=== PATIENT | male | born 1975 | race Two or more races ===

== ENCOUNTER 2018-11-22 13:31 | Emergency (ER) | payer SELFPAY ==
[~2018-11-22] VITALS: Ht 172.7 cm; Wt 77.1 kg
--- NOTE | 2018-11-22 15:56 | Emergency Room Report ---
History of Present Illness General Chief Complaint: Substance Abuse Source: EMS Present Illness HPI This patient left prior to evaluation by medical provider. Allergies: Coded Allergies: UNABLE TO ASSESS (Unverified , 11/22/18) Nursing Documentation-[facility] Past Medical History: Deferred Medical Decision Making PA Attestation Dr. Granado is my supervising Physician whom patient management has been discussed with. ER Course This patient left prior to evaluation by medical provider. Disposition: LEFT W/OUT BEING SEEN Condition: Unknown Referrals: NOT CHOSEN [facility]/,REFERRING (PCP) Meghann Nunes Nov 22, 2018 15:56
== END 2018-11-22 13:34 | disposition left against medical advice (07) ==
LOC: EDBD 13:31 → EMR 13:34
DX: F19.10 Other psychoactive substance abuse, uncomplicated (principal)
CPT/HCPCS: 99282

== ENCOUNTER 2019-05-12 19:39 | Emergency (ER) | payer OTHER ==
[~2019-05-12] VITALS: Ht 167.6 cm; Wt 78.5 kg
--- NOTE | 2019-05-12 20:05 | NUR ---
ED Nurse Note: pt ambulated to ED from home c/o an abscess on buttocks and states having hemorhoid pain, denies bleeding now. VSS, denies fever or other symptoms
[2019-05-12 20:21] VITALS: BP 162/109
[2019-05-12] MEDS ORDERED: BACTRIM DS TAB1 EAC1 ORAL (20:27)
[2019-05-12] MEDS ORDERED: CEPHALEXIN500 MG ORAL (20:27)
[2019-05-12] MEDS ORDERED: Lidocaine 1% MPF 10mg/ml 5ml INJ ONE (20:30)
[2019-05-12] MEDS ORDERED: Bactrim-DS 1 tab ORAL ONE (20:30)
[2019-05-12 20:35] VITALS: BP 162/109
--- NOTE | 2019-05-12 20:35 | NUR ---
ER DISCHARGE NOTE: Patient is cleared to be discharged per ERMD, pt is aox4, on room air, with stable vital signs. pt was given dc and prescription instructions, pt was able to verbalize understanding, pt id band removed. pt is able to ambulate with steady gait. pt took all belongings.
--- NOTE | 2019-05-12 21:36 | Emergency Room Report ---
History of Present Illness General Chief Complaint: Skin Rash/Abscess Source: Patient Present Illness HPI Patient presents with reports of discomfort in the inner part of the upper thigh on the right side also feels an abnormality just above the rectal area Patient has history of HIV however his CD4 count and viral load are appropriate patient follows closely with his primary physician and HIV physician Also reports that there was some blood discharge from the region above the rectal area Denies any obvious trauma denies any chest pain or shortness of breath denies any abdominal pain denies any fevers denies any myalgia Allergies: Coded Allergies: No Known Allergies (Unverified , 05/12/19) Patient History Past Medical History: see triage record Reviewed Nursing Documentation: PMH: Agreed; PSxH: Agreed Nursing Documentation-PMH Past Medical History: No History, Except For Hx Hypertension: Yes History Of Psychiatric Problem: Yes - anxiety Review of Systems All Other Systems: negative except mentioned in HPI Physical Exam Vital Signs Date Time Temp Pulse Resp B/P (MAP) Pulse Ox O2 Delivery O2 Flow Rate FiO2 05/12/19 19:57 98.2 120 20 162/109 (126) 99 Room Air Sp02 EP Interpretation: reviewed, normal General Appearance: well appearing, no apparent distress Head: normocephalic, atraumatic Eyes: bilateral eye PERRL, bilateral eye EOMI ENT: hearing grossly normal, EOM grossly intact Neck: supple Respiratory: lungs clear, no respiratory distress, no retraction Cardiovascular #1: regular rate, rhythm Gastrointestinal: non tender, soft Rectal: other - Area of small folliculitis fullness mild erythema on the inner aspect of the proximal thigh on the right side, rectal exam is appropriate however about 1 cm above that there is evidence of a region of skin breakdown no fluctuance there does not appear to be any communication with the rectum in this area Musculoskeletal: normal inspection Neurologic: alert Psychiatric: normal inspection Skin: other - As above Lymphatic: no adenopathy Medical Decision Making Diagnostic Impression: Primary Impression: Abscess Additional Impression: skin tear ER Course Patient has evidence of folliculitis The area above the rectal area however is more concerning initial consideration for fissure was made however There is no obvious communication, Patient later on describes that he had a fullness and a ball type sensation in that region after taking a shower it appeared to come down however best when he had the discharge Possible ingrown hair with opening of the area as possible No obvious fluctuance is palpable patient does not show findings consistent with Charley gangrene or perirectal abscess Patient was treated with antibiotics here will do warm soakings throughout the next 2 to 3 days reports that his HIV physician is also doing research on rectal cancer And is following with her on Saturday Last Vital Signs Date Time Temp Pulse Resp B/P (MAP) Pulse Ox O2 Delivery O2 Flow Rate FiO2 05/12/19 20:35 98.2 76 20 162/109 99 Room Air Status: improved Disposition: HOME, SELF-CARE Condition: Improved Scripts Trimethoprim/Sulfamethoxazole 160/800* (BACTRIM DS TABLET*) 1 Each Tablet 1 TAB ORAL Q12H, #20 TAB 0 Refills Prov: Franc Granado DO 05/12/19 Cephalexin* (KEFLEX*) 500 Mg Capsule 500 MG ORAL EVERY 6 HOURS for 10 Days, CAP Prov: Franc Granado DO 05/12/19 Referrals: your PMD Patient Instructions: Skin Tear Care, [id number], Folliculitis Additional Instructions: Patient is provided with the discharge instructions notified to follow up with primary doctor in the next 2-3 days otherwise return to the er with any worsening symptoms. Please note that this report is being documented using Movie Mouth technology. This can lead to erroneous entry secondary to incorrect interpretation by the dictating instrument. Franc Granado DO May 12, 2019 21:36
== END 2019-05-12 20:35 | disposition home or self-care (01) ==
LOC: EMR 20:15
DX: L02.415 Cutaneous abscess of right lower limb (principal); T14.8XXA Other injury of unspecified body region, initial encounter; B20 Human immunodeficiency virus [HIV] disease; I10 Essential (primary) hypertension; X58.XXXA Exposure to other specified factors, initial encounter; Y93.9 Activity, unspecified; Y92.9 Unspecified place or not applicable
CPT/HCPCS: 96372; 96374; J0696; Z7502; 99284

== ENCOUNTER 2019-06-20 22:06 | Emergency (ER) | payer OTHER ==
[~2019-06-20] VITALS: Ht 167.6 cm; Wt 77.1 kg
[~2019-06-20 22:06] MED LIST: BACTRIM DS TAB1 EAC1 ORAL; CEPHALEXIN500 MG ORAL
[2019-06-20 22:22] VITALS: BP 140/100
--- NOTE | 2019-06-20 22:23 | NUR ---
ER Nurse Note: Pt walked in from home c/o LT eye pain and irriation since 06/18. Pt stated he "feels like there is something in eyes". LT eye redness. Denies blurry vision.Visual acuity done; LT eye 20/25, RT eye 202/0, both without glasses. Will continue to montior.
[2019-06-20] MEDS ORDERED: POLYTRIM OP SOL10 ML OPHTHALM (22:28)
--- NOTE | 2019-06-20 22:28 | Emergency Room Report ---
History of Present Illness General Chief Complaint: Eye Problems Source: Patient Present Illness [facility] This a 44-year-old male with history HIV. He presents with chief complaint of left eye irritation and discharge. Woke up with it. No running. He does not wear contacts. Discharge is yellowish to greenish in nature. He denies any other complaint. [place] itchy and foreign body-like in that eye. Allergies: Coded Allergies: No Known Allergies (Unverified , 05/12/19) COVID-19 Screening Contact w/high risk pt: No Recent Travel to affected area: No Experienced COVID-19 symptoms?: No Patient History Past Medical History: see triage record, old chart reviewed, HIV Past Surgical History: none Pertinent Family History: none Social History: Denies: smoking Immunizations: other Reviewed Nursing Documentation: PMH: Agreed; PSxH: Agreed Nursing Documentation-PMH Hx Hypertension: Yes Review of Systems Eye: Reports: blurred vision, discharge; Denies: eye pain ENT: Denies: ear pain, nose congestion, throat swelling Respiratory: Denies: cough, shortness of breath Cardiovascular: Denies: chest pain, palpitations Gastrointestinal: Denies: abdominal pain, diarrhea, nausea, vomiting Musculoskeletal: Denies: back pain, joint pain Skin: Denies: rash Neurological: Denies: headache, numbness Endocrine: Denies: increased thirst, increased urine Hematologic/Lymphatic: Denies: easy bruising All Other Systems: negative except mentioned in HPI Physical Exam Vital Signs Date Time Temp Pulse Resp B/P (MAP) Pulse Ox O2 Delivery O2 Flow Rate FiO2 06/20/19 22:14 98.1 104 18 140/100 (113) 97 Room Air Vitals unremarkable Sp02 EP Interpretation: reviewed, normal General Appearance: well appearing, no apparent distress, alert Head: normocephalic, atraumatic Eyes: left eye other - Conjunctiva injected. There is yellowish discharge.; bilateral eye PERRL, bilateral eye EOMI ENT: hearing grossly normal, normal pharynx Neck: full range of motion, supple, no meningismus Respiratory: chest non-tender, lungs clear, normal breath sounds Cardiovascular #1: regular rate, rhythm, no murmur Gastrointestinal: normal bowel sounds, non tender, no mass, no organomegaly, no bruit, non-distended Musculoskeletal: back normal, normal range of motion, gait/station normal Psychiatric: mood/affect normal Medical Decision Making Diagnostic Impression: Primary Impression: Acute bacterial conjunctivitis of left eye ER Course This patient presents with a conjunctivitis. Will go ahead and put on antibiotics. No evidence of foreign body or globe rupture. No evidence of systemic infection. Will discharge home. Last Vital Signs Date Time Temp Pulse Resp B/P (MAP) Pulse Ox O2 Delivery O2 Flow Rate FiO2 06/20/19 22:22 98.1 104 18 140/100 97 Room Air Status: unchanged Disposition: HOME, SELF-CARE Condition: Stable Scripts Polymyxin/Trimethoprim (Polytrim Eye Drops) 10 Ml Drops 2 DROP OPHTHALM THREE TIMES A DAY, #1 EA Instill in affected eye for 7 days Prov: Grupo Flores MD 06/20/19 Patient Instructions: Bacterial Conjunctivitis, [id number] Additional Instructions: Treat both eyes. Follow-up with your doctor in 7 days for recheck. If not better, you may need a referral to see an eye doctor. Return if symptoms worsen. Grupo Flores MD Jun 20, 2019 22:28
[2019-06-20 22:35] VITALS: BP 140/100
--- NOTE | 2019-06-20 22:35 | NUR ---
ED Nurse Note: Pt cleared by health care Provider for discharge. DC instructions/prescription was given and explained to pt and verbalized understanding of teachings. All medical deviecs such as ID band removed. Pt is AAO x4, ambulatory and left with all personal belongings.
== END 2019-06-20 22:35 | disposition home or self-care (01) ==
LOC: EMR 22:30
DX: H10.32 Unspecified acute conjunctivitis, left eye (principal); B20 Human immunodeficiency virus [HIV] disease; I10 Essential (primary) hypertension
CPT/HCPCS: 99282

== ENCOUNTER 2020-05-26 17:38 | Emergency (ER) | payer OTHER ==
[~2020-05-26] VITALS: Ht 167.6 cm; Wt 79.4 kg
[~2020-05-26 17:38] MED LIST changes: +POLYTRIM OP SOL10 ML OPHTHALM
[2020-05-26 17:44] VITALS: BP 127/82
--- NOTE | 2020-05-26 17:53 | NUR ---
pt arrives to ER with complaints of fever, pt states receiveing chemotherapy treatment yesterday for lymphoma. pt states pain and discomfort generalized.
[2020-05-26] MEDS ORDERED: Morphine Sulfate 4mg/ml Inj (IV USE ONLY) IVP ONE (18:00)
[2020-05-26] MEDS ORDERED: Ketorolac 30mg Inj IV ONE (18:00)
[2020-05-26 18:31] LABS: HEMATOCRIT 33.9 % (42.0-52.0); HEMOGLOBIN 11.3 G/DL (14.2-18.0); MEAN CORPUSCULAR VOLUME 90 FL (80-99); PLATELET COUNT 147 K/UL (150-450); RED BLOOD COUNT 3.77 M/UL (4.70-6.10); RED CELL DISTRIBUTION WIDTH 14.1 % (11.6-14.8)
[2020-05-26 18:35] LABS: WHITE BLOOD COUNT 0.8 K/UL (4.8-10.8)
--- NOTE | 2020-05-26 18:36 | NUR ---
pt states has completed 4 chemotherapy treatments, last treatment last week with 2 remaining
[2020-05-26 18:45] LABS: ANION GAP 12 mmol/L (5-15); BLOOD UREA NITROGEN 10 mg/dL (7-18); CALCIUM 8.7 MG/DL (8.5-10.1); CARBON DIOXIDE 25 MMOL/L (21-32); CHLORIDE 102 MMOL/L (98-107); POTASSIUM 3.5 MMOL/L (3.5-5.1); SODIUM 139 MMOL/L (136-145)
[2020-05-26] MEDS ORDERED: Vancomycin 1 GM in NS 275 ML IVPB ONE (18:45)
[2020-05-26] MEDS ORDERED: Piperacillin/Tazobactam 4.5 GM in NS 110 ML IVPB ONE (18:45)
[2020-05-26 18:50] LABS: ALANINE AMINOTRANSFERASE 22 U/L (12-78); ALBUMIN/GLOBULIN RATIO 0.9 (1.0-2.7); ALKALINE PHOSPHATASE 84 U/L (46-116); ASPARTATE AMINO TRANSFERASE 10 U/L (15-37); BILIRUBIN,TOTAL 0.4 MG/DL (0.2-1.0); PHOSPHORUS 1.2 MG/DL (2.5-4.9)
--- NOTE | 2020-05-26 18:58 | Emergency Room Report ---
History of Present Illness General Chief Complaint: General Complaint Source: Patient Present Illness HPI 45-year-old male with history of lymphoma on chemotherapy here with fever and joint pain. Patient says that he received his fourth treatment of chemotherapy 7 days ago and yesterday began to have a fever. Checked his temperature and it was 101 F. Has not taken any medication for symptoms. Says that he also developed right middle finger swelling and pain "similar to the gout that my dad had." Patient has no history of gout and has never had these symptoms before. Denies headache, vision change, neck pain, neck stiffness, chest pain, palpitation, cough, shortness of breath, back pain, abdominal pain, nausea, vomiting, diarrhea, dysuria. Allergies: Coded Allergies: No Known Allergies (Unverified , 05/12/19) COVID-19 Screening Contact w/high risk pt: No Recent Travel to affected area: No Experienced COVID-19 symptoms?: Yes COVID-19 Testing performed PEARL DIVER: No COVID-19 Screening: Negative COVID-19 COVID-19 Testing Source: nasal Nursing Documentation-[facility] Past Medical History: No History, Except For Hx Hypertension: Yes Review of Systems All Other Systems: negative except mentioned in HPI Physical Exam Vital Signs Date Time Temp Pulse Resp B/P (MAP) Pulse Ox O2 Delivery O2 Flow Rate FiO2 05/26/20 17:44 99.1 146 18 127/82 (97) 97 Room Air Sp02 EP Interpretation: reviewed, normal General Appearance: alert, non-toxic, other - Appears uncomfortable, diapho retic Head: normocephalic, atraumatic Eyes: bilateral eye normal inspection, bilateral eye PERRL ENT: hearing grossly normal, normal pharynx, no angioedema, normal voice Neck: full range of motion, supple/symm/no masses Respiratory: chest non-tender, lungs clear, normal breath sounds, speaking full sentences Cardiovascular #1: no edema, other - Tachycardic 140 bpm Cardiovascular #2: 2+ carotid (R), 2+ carotid (L), 2+ radial (R), 2+ radial (L), 2+ dorsalis pedis (R), 2+ dorsalis pedis (L) Gastrointestinal: normal bowel sounds, non tender, soft, non-distended, no guarding, no rebound Rectal: deferred Genitourinary: normal inspection, no CVA tenderness Musculoskeletal: back normal, normal range of motion, gait/station normal, non- tender, other - Right PICC line in place in the right upper extremity. No surrounding erythema or induration or drainage Neurologic: alert, motor strength/tone normal, oriented x3, sensory intact, responsive, speech normal Psychiatric: judgement/insight normal, memory normal, mood/affect normal, no suicidal/homicidal ideation Lymphatic: no adenopathy Medical Decision Making Diagnostic Impression: Primary Impression: Neutropenic fever ER Course Laboratory Tests Test 05/26/20 18:00 05/26/20 18:44 White Blood Count 0.8 K/UL (4.8-10.8) *L Red Blood Count 3.77 M/UL (4.70-6.10) L Hemoglobin 11.3 G/DL (14.2-18.0) L Hematocrit 33.9 % (42.0-52.0) L Mean Corpuscular Volume 90 FL (80-99) Mean Corpuscular Hemoglobin 30.0 PG (27.0-31.0) Mean Corpuscular Hemoglobin Concent 33.2 G/DL (32.0-36.0) Red Cell Distribution Width 14.1 % (11.6-14.8) Platelet Count 147 K/UL (150-450) L Mean Platelet Volume 9.2 FL (6.5-10.1) Neutrophils (%) (Auto) % (45.0-75.0) Lymphocytes (%) (Auto) % (20.0-45.0) Monocytes (%) (Auto) % (1.0-10.0) Eosinophils (%) (Auto) % (0.0-3.0) Basophils (%) (Auto) % (0.0-2.0) Neutrophils % (Manual) Pending Lymphocytes % (Manual) Pending Platelet Estimate Pending Platelet Morphology Pending Sodium Level 139 MMOL/L (136-145) Potassium Level 3.5 MMOL/L (3.5-5.1) Chloride Level 102 MMOL/L (98-107) Carbon Dioxide Level 25 MMOL/L (21-32) Anion Gap 12 mmol/L (5-15) Blood Urea Nitrogen 10 mg/dL (7-18) Creatinine 1.0 MG/DL (0.55-1.30) Estimated Glomerular Filtration Rate > 60 mL/min (>60) Glucose Level 106 MG/DL (74-106) Lactic Acid Level 2.00 mmol/L (0.4-2.0) Uric Acid 3.8 MG/DL (2.6-7.2) Calcium Level 8.7 MG/DL (8.5-10.1) Phosphorus Level 1.2 MG/DL (2.5-4.9) L Magnesium Level 1.5 MG/DL (1.8-2.4) L Total Bilirubin 0.4 MG/DL (0.2-1.0) Aspartate Amino Transferase (AST) 10 U/L (15-37) L Alanine Aminotransferase (ALT) 22 U/L (12-78) Alkaline Phosphatase 84 U/L (46-116) Total Creatine Kinase 27 U/L (26-308) Creatine Kinase MB < 0.5 NG/ML (0.0-3.6) Creatine Kinase MB Relative Index 1.8 Troponin I 0.022 ng/mL (0.000-0.056) Total Protein 6.5 G/DL (6.4-8.2) Albumin 3.0 G/DL (3.4-5.0) L Globulin 3.5 g/dL Albumin/Globulin Ratio 0.9 (1.0-2.7) L Urine Color Pale yellow Urine Appearance Clear Urine pH 8 (4.5-8.0) Urine Specific [place] 1.010 (1.005-1.035) Urine Protein Negative (NEGATIVE) Urine Glucose (UA) Negative (NEGATIVE) Urine Ketones Negative (NEGATIVE) Urine Blood 1+ (NEGATIVE) H Urine Nitrite Negative (NEGATIVE) Urine Bilirubin Negative (NEGATIVE) Urine Urobilinogen Normal MG/DL (0.0-1.0) Urine Leukocyte Esterase Negative (NEGATIVE) Urine RBC Pending Urine WBC Pending Urine Squamous Epithelial Cells Pending Urine Bacteria Pending Microbiology Date/Time Source Procedure Growth Status 05/26/20 18:40 Nasopharynx SARS-CoV-2 Antigen (Rapid)(ANN) - Final Complete 45-year-old male on chemotherapy for lymphoma here with fever and joint pain. Patient also HIV positive and has been noncompliant recently with his Biktarvy. Patient was tachycardic 145 bpm on arrival to the emergency department. He was diaphoretic and had a fever of 101.5 F. Given 30 cc/kg fluid bolus with vast improvement of his tachycardia. CBC revealed a leukopenia of 0.8. Patient started on vancomycin and Zosyn for treatment of neutropenic fever. Urinalysis, chest x-ray largely unremarkable. Patient received the vancomycin and Zosyn in the emergency department. When he was receiving these antibiotics the patient said "I will just go home and follow-up with my doctor." Patient was told that he has neutropenic fever and has had severe risk of sepsis, worsening infection, morbidity, and even mortality. I spoke with the patient along with the charge nurse and his nurse. We all told him that he may and has very severe pathology that needs to be treated in the hospital and that he needs to be observed. Patient said that he understands and that he wishes to go home. He was awake and alert and decisional, and sober. Patient signed out AGAINST MEDICAL ADVICE. Last Vital Signs Date Time Temp Pulse Resp B/P (MAP) Pulse Ox O2 Delivery O2 Flow Rate FiO2 05/26/20 17:44 99.1 146 18 127/82 (97) 97 Room Air Referrals: [facility],REFERRING (PCP) Jones Chan M.D. May 26, 2020 18:58
[2020-05-26 19:02] LABS: CKMB < 0.5 NG/ML (0.0-3.6); CREATINE KINASE 27 U/L (26-308)
[2020-05-26 19:16] LABS: APPEARANCE,URINE CLEAR; BILIRUBIN, URINE NEGATIVE (NEGATIVE); COLOR,URINE PALE YELLOW; GLUCOSE, URINE (UA) NEGATIVE (NEGATIVE); KETONES,URINE NEGATIVE (NEGATIVE); LEUKOCYTE ESTERASE ,URINE NEGATIVE (NEGATIVE); NITRITE,URINE NEGATIVE (NEGATIVE); PH,URINE 8 (4.5-8.0); PROTEIN,URINE NEGATIVE (NEGATIVE); UROBILINOGEN,URINE NORMAL MG/DL (0.0-1.0)
--- NOTE | 2020-05-26 20:10 | NUR ---
Patient declined the transfer, states have white cells at home, too far ect, alert and oriented, states will come back if worse. Requested his lab results to send to his doctor, lab results provided.
--- NOTE | 2020-05-26 21:06 | NUR ---
AMA: SEE AMA FORM.
--- NOTE | 2020-05-27 12:38 | Cardiology Report ---
APPROVED REPORT EKG Measurement Heart [id number] ME 150P80 [id number] <Conclusion> Sinus tachycardia Cannot rule out Anterior infarct, age undetermined Abnormal ECG
--- NOTE | 2020-05-27 13:51 | Diagnostic Imaging Report ---
Procedure: XRAY Chest 1v Reason for study: Reason For Exam: COUGH Comparison films: None. FINDINGS: Radiograph is underexposed. There is a right PICC line in place. There is slight vascular and interstitial prominence although this may be exaggerated by technique. No definite acute interval process seen. Cardiac and mediastinal silhouette are within normal limits. CP angles are sharp. The bony thorax appear unremarkable. IMPRESSION: Vascular and interstitial prominence although this may be exaggerated by underpenetrated technique. No gross acute alveolar process.
== END 2020-05-26 21:30 | disposition left against medical advice (07) ==
LOC: EMR 17:56 → CANBEDREQ 20:12 → EMR 21:30
DX: D70.9 Neutropenia, unspecified (principal); R50.81 Fever presenting with conditions classified elsewhere; I10 Essential (primary) hypertension; B20 Human immunodeficiency virus [HIV] disease; C85.90 Non-Hodgkin lymphoma, unspecified, unspecified site; Z79.899 Other long term (current) drug therapy; Z91.14 Patient's other noncompliance with medication regimen; Z53.29 Procedure and treatment not carried out because of patient's decision for other reasons; Z92.21 Personal history of antineoplastic chemotherapy; Z95.828 Presence of other vascular implants and grafts
CPT/HCPCS: 36415; 71045; 80053; 81003; 82550; 82553; 83605; 83735; 84100; 84484; 84550; 85007; 85025; 87040; 87181; 93005; 96361; 96365; 96367; 96375; J1885; J2543; J3370; J7030; J7050; Z7502; 99284